=== PATIENT | female | born 1935 | race Caucasian/White ===

== ENCOUNTER 2018-11-05 21:50 | Inpatient (IN) ==
[~2018-11-05 21:50] MED LIST: VANCOMYCIN INJ 1,000 MG in SODIUM CHLORIDE 0.9% 250 ML IV ONE
[2018-11-05] MEDS ORDERED: SODIUM CHLORIDE 0.9% 1,000 ML IV ONE (23:30)
[2018-11-05] MEDS ORDERED: AMIODARONE INJ 450 MG in DEXTROSE 5% 241 ML IV SCH (23:45)
[2018-11-05] MEDS ORDERED: AMIODARONE INJ 150 MG in DEXTROSE 5% 100 ML IV ONE (23:49)
[2018-11-06] MEDS ORDERED: ALBUTEROL/IPRATROPIUM 3 ML NEB RESP TX PRN (00:30)
[2018-11-06 00:46] LABS: Basophils % 0.2 % (0.0-0.8); Eosinophils # 0.1 10*3/uL (0.0-0.87); Eosinophils % 0.5 % (0.00-10.9); Hematocrit 29.1 VOL% (35.7-47.0); Hemoglobin 9.5 GM/DL (12.0-16.0); Immature Granulocytes % 1.1 %; Lymphocytes # 1.1 10*3/uL (1.4-4.0); Lymphocytes % 6.2 % (21.3-54.2); Mean Corpuscular HGB Conc 32.6 GM/DL (32-36); Mean Corpuscular Volume 91.2 FL (87-102); Mean Platelet Volume 12.4 FL (9.6-12.0); Monocytes % 8.1 % (1.7-12.7); Neutrophils % 83.9 % (38.7-73.9); Platelet Count 174 T/CUMM (130-400); Red Blood Count 3.19 MC/CUMM (3.8-5.5); Red Cell Distribution Width 14.9 % (9.3-17.3); White Blood Count 18.1 T/CUMM (4-12)
[2018-11-06 01:00] LABS: Calcium 9.5 MG/DL (8.5-10.1); Osmolality,Calculated 340.8 MOS/KG (273-304)
[2018-11-06] MEDS ORDERED: VANCOMYCIN INJ 1,000 MG in SODIUM CHLORIDE 0.9% 250 ML IV ONE (01:00)
[2018-11-06 01:07] LABS: PT Patient Result 10.7 SECS; Partial Thromboplastin Time 24.5 SECS (0-40)
[2018-11-06] MEDS: SODIUM CHLORIDE 0.9% 1,000 ML IV SCH ×2 (01:08→14:15)
[2018-11-06] MEDS: MEROPENEM 1,000 MG in SODIUM CHLORIDE 0.9% 100 ML IV SCH ×2 (01:17→12:46)
[2018-11-06] MEDS ORDERED: ACETAMINOPHEN 325 MG TABLET PO PRN (01:31)
[2018-11-06] MEDS ORDERED: DOCUSATE SODIUM 100 MG CAPSULE PO PRN (01:31)
[2018-11-06] MEDS ORDERED: ALBUTEROL 2.5 MG/3 ML NEB RESP TX PRN (01:31)
[2018-11-06] MEDS ORDERED: ONDANSETRON 4 MG/2 ML VIAL IV PRN (01:31)
[2018-11-06] MEDS ORDERED: VANCOMYCIN INJ 1,000 MG in SODIUM CHLORIDE 0.9% 250 ML IV PRN (01:49)
[2018-11-06 04:28] LABS: Basophils % 0.2 % (0.0-0.8); Eosinophils % 0.2 % (0.00-10.9); Hematocrit 26.8 VOL% (35.7-47.0); Hemoglobin 8.4 GM/DL (12.0-16.0); Immature Granulocytes % 1.4 %; Immature Granulocytes Absolute 0.24 #; Lymphocytes % 5.9 % (21.3-54.2); Mean Corpuscular HGB Conc 31.3 GM/DL (32-36); Mean Corpuscular Volume 92.4 FL (87-102); Mean Platelet Volume 12.3 FL (9.6-12.0); Monocytes % 9.4 % (1.7-12.7); Neutrophils % 82.9 % (38.7-73.9); Platelet Count 165 T/CUMM (130-400); Red Cell Distribution Width 15.1 % (9.3-17.3); White Blood Count 17.2 T/CUMM (4-12)
[2018-11-06 04:47] LABS: Osmolality,Calculated 338.6 MOS/KG (273-304)
[2018-11-06 05:17] LABS: Amorphous Crystals,Urine Few /HPF (Few); Apearance,Urine CLEAR (Clear); Bacteria,Urine Moderate /HPF (Few); Bilirubin,Urine Negative (Negative); Blood, Urine Negative (Negative); Glucose,Urine (UA) Negative (Negative); Hyaline Casts,Urine 13 /LPF (0-3); Ketones,Urine Negative (Negative); Mucus,Urine Occasional /LPF (Occasional); Nitrite,Urine Negative (Negative); Protein,Urine Negative; RBC,Urine 1 /HPF (0-4); Squamous Epithelial Cell,Urine Occasional /HPF (0-10); Urine Color Yellow (Yellow); Urine Specific Gravity 1.014 (1.001-1.035); Urine Urobilinogen < 2.0 EU/DL (0.2-1.0); WBC,Urine 9 /HPF (0-6)
[2018-11-06] MEDS: BUDESONIDE/FORMOTEROL 80-4.5 INHALER 6.9 GM INH SCH ×2 (09:06→21:12)
[2018-11-06] MEDS: ALLOPURINOL 300 MG TABLET PO SCH (09:06)
[2018-11-06] MEDS: MULTIVITAMIN (CENTRUM) TABLET PO SCH (09:06)
[2018-11-06] MEDS: PANTOPRAZOLE 40 MG VIAL IV SCH (09:06)
[2018-11-06] MEDS: ATORVASTATIN 20 MG TABLET PO SCH (21:12)
[2018-11-06] MEDS: ASPIRIN EC 81 MG TABLET PO SCH (21:12)
[2018-11-07] MEDS: MEROPENEM 1,000 MG in SODIUM CHLORIDE 0.9% 100 ML IV SCH ×2 (00:25→15:29)
[2018-11-07] MEDS: SODIUM CHLORIDE 0.9% 1,000 ML IV SCH (03:35)
[2018-11-07 05:16] LABS: Basophils % 0.1 % (0.0-0.8); Eosinophils # 0.8 10*3/uL (0.0-0.87); Eosinophils % 5.8 % (0.00-10.9); Hematocrit 24.3 VOL% (35.7-47.0); Hemoglobin 7.6 GM/DL (12.0-16.0); Immature Granulocytes % 1.9 %; Immature Granulocytes Absolute 0.26 #; Lymphocytes # 0.9 10*3/uL (1.4-4.0); Lymphocytes % 6.9 % (21.3-54.2); Mean Corpuscular HGB Conc 31.3 GM/DL (32-36); Mean Corpuscular Volume 94.9 FL (87-102); Monocytes % 7.4 % (1.7-12.7); NRBC # 0.02 10*3/uL; Neutrophils % 77.9 % (38.7-73.9); Platelet Count 152 T/CUMM (130-400); Red Blood Count 2.56 MC/CUMM (3.8-5.5); Red Cell Distribution Width 15.7 % (9.3-17.3); White Blood Count 13.5 T/CUMM (4-12)
[2018-11-07 05:57] LABS: Troponin I 0.061 NG/ML (0.00-0.045)
[2018-11-07] MEDS: MULTIVITAMIN (CENTRUM) TABLET PO SCH (09:01)
[2018-11-07] MEDS: AMIODARONE 200 MG TABLET PO SCH ×2 (09:01→21:37)
[2018-11-07] MEDS: ALLOPURINOL 300 MG TABLET PO SCH (09:01)
[2018-11-07] MEDS: BUDESONIDE/FORMOTEROL 80-4.5 INHALER 6.9 GM INH SCH ×2 (09:02→21:37)
[2018-11-07] MEDS: PANTOPRAZOLE 40 MG VIAL IV SCH (09:02)
[2018-11-07] MEDS ORDERED: SODIUM CHLORIDE 0.9% 1,000 ML IV PRN (09:50)
[2018-11-07 10:01] LABS: Troponin I 0.042 NG/ML (0.00-0.045)
[2018-11-07] MEDS ORDERED: FUROSEMIDE 40 MG/4 ML VIAL IV ONE (10:10)
[2018-11-07] MEDS ORDERED: AMIODARONE 150 MG/3 ML VIAL ONE (10:16)
[2018-11-07] MEDS ORDERED: AMIODARONE 450 MG/9 ML VIAL IV ONE (10:16)
[2018-11-07 12:10] LABS: Troponin I 0.044 NG/ML (0.00-0.045)
[2018-11-07] MEDS: VANCOMYCIN INJ 1,250 MG in SODIUM CHLORIDE 0.9% 250 ML IV SCH (14:57)
[2018-11-07] MEDS ORDERED: FUROSEMIDE 40 MG/4 ML VIAL ONE (18:43)
[2018-11-07] MEDS: ASPIRIN EC 81 MG TABLET PO SCH (21:37)
[2018-11-07] MEDS: ATORVASTATIN 20 MG TABLET PO SCH (21:37)
[2018-11-08] MEDS: MEROPENEM 1,000 MG in SODIUM CHLORIDE 0.9% 100 ML IV SCH ×2 (00:12→15:09)
[2018-11-08 04:43] LABS: Calcium 9.5 MG/DL (8.5-10.1); Osmolality,Calculated 307.1 MOS/KG (273-304)
[2018-11-08 04:56] LABS: Basophils % 0.3 % (0.0-0.8); Eosinophils # 0.7 10*3/uL (0.0-0.87); Eosinophils % 4.5 % (0.00-10.9); Immature Granulocytes % 2.5 %; Immature Granulocytes Absolute 0.37 #; Lymphocytes # 1.1 10*3/uL (1.4-4.0); Lymphocytes % 7.1 % (21.3-54.2); Mean Corpuscular HGB Conc 31.9 GM/DL (32-36); Mean Corpuscular Volume 92.8 FL (87-102); Monocytes % 9.1 % (1.7-12.7); NRBC # 0.02 10*3/uL; Neutrophils % 76.5 % (38.7-73.9); Platelet Count 172 T/CUMM (130-400); Red Cell Distribution Width 15.9 % (9.3-17.3); White Blood Count 15.1 T/CUMM (4-12)
[2018-11-08 05:04] LABS: Hemoglobin 10.2 GM/DL (12.0-16.0); Red Blood Count 3.45 MC/CUMM (3.8-5.5)
[2018-11-08] MEDS ORDERED: AMIODARONE INJ 150 MG in DEXTROSE 5% 100 ML IV ONE (07:48)
[2018-11-08] MEDS ORDERED: AMIODARONE 450 MG/9 ML VIAL IV ONE (07:53)
[2018-11-08] MEDS: AMIODARONE INJ 450 MG in DEXTROSE 5% 241 ML IV SCH ×2 (08:43→23:40)
[2018-11-08] MEDS: PANTOPRAZOLE 40 MG VIAL IV SCH (08:49)
[2018-11-08] MEDS: BUDESONIDE/FORMOTEROL 80-4.5 INHALER 6.9 GM INH SCH ×2 (08:49→21:11)
[2018-11-08] MEDS: AMIODARONE 200 MG TABLET PO SCH ×2 (08:49→21:09)
[2018-11-08] MEDS: ALLOPURINOL 300 MG TABLET PO SCH (08:49)
[2018-11-08] MEDS: MULTIVITAMIN (CENTRUM) TABLET PO SCH (08:49)
[2018-11-08] MEDS ORDERED: ETOMIDATE 20 MG/10 ML VIAL IV ONE (09:00)
[2018-11-08] MEDS ORDERED: PROPOFOL 200 MG/20 ML VIAL IV ONE (09:00)
[2018-11-08] MEDS: LISINOPRIL 20 MG TABLET PO SCH (11:49)
[2018-11-08] MEDS: VANCOMYCIN INJ 1,250 MG in SODIUM CHLORIDE 0.9% 250 ML IV SCH (11:49)
[2018-11-08] MEDS: CARVEDILOL 6.25 MG TABLET PO SCH ×2 (11:49→21:11)
[2018-11-08] MEDS: MORPHINE 4 MG/1 ML VIAL IV PRN ×2 (19:21→23:33)
[2018-11-08] MEDS: ASPIRIN EC 81 MG TABLET PO SCH (21:09)
[2018-11-08] MEDS: ATORVASTATIN 20 MG TABLET PO SCH (21:09)
[2018-11-09] MEDS: MEROPENEM 1,000 MG in SODIUM CHLORIDE 0.9% 100 ML IV SCH (00:02)
[2018-11-09] MEDS: MORPHINE 4 MG/1 ML VIAL IV PRN (04:32)
[2018-11-09 04:41] LABS: Basophils % 0.2 % (0.0-0.8); Eosinophils # 1.1 10*3/uL (0.0-0.87); Eosinophils % 6.7 % (0.00-10.9); Hematocrit 33.6 VOL% (35.7-47.0); Hemoglobin 10.4 GM/DL (12.0-16.0); Immature Granulocytes % 2.1 %; Immature Granulocytes Absolute 0.34 #; Lymphocytes # 1.2 10*3/uL (1.4-4.0); Lymphocytes % 7.2 % (21.3-54.2); Mean Corpuscular Volume 94.6 FL (87-102); Mean Platelet Volume 11.6 FL (9.6-12.0); Monocytes % 9.3 % (1.7-12.7); NRBC # 0.02 10*3/uL; Neutrophils % 74.5 % (38.7-73.9); Platelet Count 164 T/CUMM (130-400); Red Blood Count 3.55 MC/CUMM (3.8-5.5); Red Cell Distribution Width 16.8 % (9.3-17.3); White Blood Count 16.2 T/CUMM (4-12)
[2018-11-09 05:25] LABS: Calcium 9.3 MG/DL (8.5-10.1); Osmolality,Calculated 298.4 MOS/KG (273-304)
[2018-11-09] MEDS: LISINOPRIL 20 MG TABLET PO SCH (09:38)
[2018-11-09] MEDS: CARVEDILOL 6.25 MG TABLET PO SCH ×2 (09:38→20:42)
[2018-11-09] MEDS: MULTIVITAMIN (CENTRUM) TABLET PO SCH (09:38)
[2018-11-09] MEDS: BUDESONIDE/FORMOTEROL 80-4.5 INHALER 6.9 GM INH SCH ×2 (09:38→20:42)
[2018-11-09] MEDS: ALLOPURINOL 300 MG TABLET PO SCH (09:39)
[2018-11-09] MEDS: AMIODARONE 200 MG TABLET PO SCH ×2 (09:43→20:40)
[2018-11-09] MEDS: AMIODARONE INJ 450 MG in DEXTROSE 5% 241 ML IV SCH (15:22)
[2018-11-09] MEDS: ATORVASTATIN 20 MG TABLET PO SCH ×2 (20:40→20:42)
[2018-11-09] MEDS: ASPIRIN EC 81 MG TABLET PO SCH (20:42)
[2018-11-09] MEDS: PANTOPRAZOLE 40 MG TABLET PO SCH (20:42)
[2018-11-10 03:02] LABS: Basophils % 0.2 % (0.0-0.8); Eosinophils # 0.6 10*3/uL (0.0-0.87); Eosinophils % 3.9 % (0.00-10.9); Hemoglobin 9.6 GM/DL (12.0-16.0); Immature Granulocytes Absolute 0.32 #; Lymphocytes # 1.1 10*3/uL (1.4-4.0); Lymphocytes % 7.1 % (21.3-54.2); Mean Corpuscular Volume 94.8 FL (87-102); Mean Platelet Volume 11.9 FL (9.6-12.0); Monocytes % 8.6 % (1.7-12.7); Neutrophils % 78.2 % (38.7-73.9); Platelet Count 161 T/CUMM (130-400); Red Blood Count 3.27 MC/CUMM (3.8-5.5); Red Cell Distribution Width 16.4 % (9.3-17.3); White Blood Count 15.7 T/CUMM (4-12)
[2018-11-10 03:23] LABS: Calcium 8.7 MG/DL (8.5-10.1)
[2018-11-10] MEDS: AMIODARONE INJ 450 MG in DEXTROSE 5% 241 ML IV SCH ×2 (06:27→21:22)
[2018-11-10] MEDS: MULTIVITAMIN (CENTRUM) TABLET PO SCH (09:41)
[2018-11-10] MEDS: BUDESONIDE/FORMOTEROL 80-4.5 INHALER 6.9 GM INH SCH ×2 (09:41→21:22)
[2018-11-10] MEDS: CARVEDILOL 6.25 MG TABLET PO SCH ×2 (09:41→21:22)
[2018-11-10] MEDS: AMIODARONE 200 MG TABLET PO SCH ×2 (09:41→21:22)
[2018-11-10] MEDS: LISINOPRIL 20 MG TABLET PO SCH (09:41)
[2018-11-10] MEDS: PANTOPRAZOLE 40 MG TABLET PO SCH ×2 (09:41→21:22)
[2018-11-10] MEDS: ALLOPURINOL 300 MG TABLET PO SCH (09:41)
[2018-11-10] MEDS: ATORVASTATIN 20 MG TABLET PO SCH (21:21)
[2018-11-10] MEDS: ASPIRIN EC 81 MG TABLET PO SCH (21:21)
[2018-11-11 05:17] LABS: Basophils % 0.2 % (0.0-0.8); Eosinophils # 0.4 10*3/uL (0.0-0.87); Eosinophils % 2.5 % (0.00-10.9); Hematocrit 29.9 VOL% (35.7-47.0); Hemoglobin 9.5 GM/DL (12.0-16.0); Immature Granulocytes % 2.2 %; Immature Granulocytes Absolute 0.38 #; Lymphocytes # 1.2 10*3/uL (1.4-4.0); Lymphocytes % 7.1 % (21.3-54.2); Mean Corpuscular HGB Conc 31.8 GM/DL (32-36); Mean Corpuscular Volume 93.4 FL (87-102); Mean Platelet Volume 12.4 FL (9.6-12.0); Monocytes % 7.3 % (1.7-12.7); Neutrophils % 80.7 % (38.7-73.9); Platelet Count 169 T/CUMM (130-400); Red Cell Distribution Width 16.2 % (9.3-17.3); White Blood Count 17.6 T/CUMM (4-12)
[2018-11-11 05:40] LABS: Calcium 9.1 MG/DL (8.5-10.1)
[2018-11-11 08:27] VITALS: BP 138/70
[2018-11-11] MEDS: AMIODARONE 200 MG TABLET PO SCH (08:55)
[2018-11-11] MEDS: MULTIVITAMIN (CENTRUM) TABLET PO SCH (08:55)
[2018-11-11] MEDS: LISINOPRIL 20 MG TABLET PO SCH (08:55)
[2018-11-11] MEDS: ALLOPURINOL 300 MG TABLET PO SCH (08:55)
[2018-11-11] MEDS: CARVEDILOL 6.25 MG TABLET PO SCH (08:56)
[2018-11-11] MEDS: PANTOPRAZOLE 40 MG TABLET PO SCH (08:56)
[2018-11-11] MEDS: BUDESONIDE/FORMOTEROL 80-4.5 INHALER 6.9 GM INH SCH (09:46)
== END 2018-11-11 12:01 | disposition swing bed (61) | DRG 308 ==
LOC: N.2E 22:39 → SUATTDRO 22:58 → SUPCPDRO 22:58 → N.ICU 23:55 → N.TELEN 11-06 18:06
PROVIDERS: ADMIT Internal Medicine; ATTEND Internal Medicine

== ENCOUNTER 2018-11-30 17:25 | Inpatient (IN) ==
[2018-11-30] MEDS ORDERED: DILTIAZEM 50 MG/10 ML VIAL IV STA (17:58)
[2018-11-30] MEDS ORDERED: ONDANSETRON 4 MG/2 ML VIAL IV STA (17:58)
[2018-11-30] MEDS ORDERED: METOPROLOL TARTRATE 5 MG/5 ML VIAL IV STA (18:05)
[2018-11-30] MEDS ORDERED: MEROPENEM 1,000 MG in SODIUM CHLORIDE 0.9% 100 ML IV STA (18:25)
[2018-11-30] MEDS ORDERED: ALBUTEROL/IPRATROPIUM 3 ML NEB RESP TX STA (18:27)
[2018-11-30 19:06] LABS: Basophils # 0.1 10*3/uL (0.0-0.2); Basophils % 0.6 % (0.0-0.8); Eosinophils # 0.4 10*3/uL (0.0-0.87); Eosinophils % 2.7 % (0.00-10.9); Hematocrit 35.9 VOL% (35.7-47.0); Hemoglobin 11.3 GM/DL (12.0-16.0); Immature Granulocytes % 1.7 %; Immature Granulocytes Absolute 0.25 #; Lymphocytes # 0.8 10*3/uL (1.4-4.0); Lymphocytes % 5.7 % (21.3-54.2); Mean Corpuscular HGB Conc 31.5 GM/DL (32-36); Mean Corpuscular Volume 93.2 FL (87-102); Mean Platelet Volume 11.5 FL (9.6-12.0); Monocytes % 7.1 % (1.7-12.7); Neutrophils % 82.2 % (38.7-73.9); Platelet Count 265 T/CUMM (130-400); Red Blood Count 3.85 MC/CUMM (3.8-5.5); Red Cell Distribution Width 16.8 % (9.3-17.3); White Blood Count 14.6 T/CUMM (4-12)
[2018-11-30 19:28] LABS: INR 0.9; PT Patient Result 10.3 SECS; Partial Thromboplastin Time 26.2 SECS (0-40)
[2018-11-30 20:38] LABS: Barbiturates Screen,Urine Negative (Negative); Benzodiazepines Screen,Urine Negative (Negative); Cannabinoid Screen,Urine Negative (Negative); Opiate Screen,Urine Positive (Negative); Phencyclidine Screen,Urine Negative (Negative)
[2018-11-30 20:39] LABS: Apearance,Urine Slightly Hazy (Clear); Bacteria,Urine Occasional /HPF (Few); Bilirubin,Urine Negative (Negative); Blood, Urine Negative (Negative); Glucose,Urine (UA) Negative (Negative); Hyaline Casts,Urine 23 /LPF (0-3); Ketones,Urine Negative (Negative); Mucus,Urine Occasional /LPF (Occasional); Nitrite,Urine Negative (Negative); Protein,Urine Negative; RBC,Urine 3 /HPF (0-4); Renal Epithelial Cells,Urine Occasional /HPF (<1); Squamous Epithelial Cell,Urine Occasional /HPF (0-10); Urine Color Yellow (Yellow); Urine Specific Gravity 1.011 (1.001-1.035); Urine Urobilinogen < 2.0 EU/DL (0.2-1.0); WBC,Urine 10 /HPF (0-6)
[2018-11-30 22:00] LABS: Albumin 3.7 G/DL (3.4-5.0); Blood Urea Nitrogen 7 MG/DL (7-18); Glucose 137 MG/DL (74-106)
[2018-11-30 22:02] LABS: Alanine Aminotransferase 20 U/L (13-56); Aspartate Amino Transferase 39 U/L (0-37)
[2018-11-30 22:05] LABS: Alkaline Phosphatase 20 U/L (45-117); Bilirubin,Total 0.39 MG/DL (0.2-1.0); Total Protein 7.2 G/DL (6.4-8.3)
[2018-11-30 22:46] LABS: Troponin I < 0.015 NG/ML (0.00-0.045)
[2018-11-30] MEDS ORDERED: ONDANSETRON 4 MG/2 ML VIAL IV PRN (23:02)
[2018-11-30] MEDS ORDERED: NICOTINE 21 MG/24 HR PATCH TRANSDERM PRN (23:02)
[2018-11-30] MEDS ORDERED: ACETAMINOPHEN 325 MG TABLET PO PRN (23:02)
[2018-11-30] MEDS ORDERED: MORPHINE 4 MG/1 ML VIAL IV PRN (23:02)
[2018-12-01] MEDS: SODIUM CHLORIDE 0.9% 1,000 ML IV SCH ×2 (00:30→16:17)
[2018-12-01] MEDS ORDERED: AMIODARONE INJ 450 MG in DEXTROSE 5% 241 ML IV SCH ×2 (01:00→07:30)
[2018-12-01] MEDS: MEROPENEM 1,000 MG in SODIUM CHLORIDE 0.9% 100 ML IV SCH ×3 (05:10→20:51)
[2018-12-01 06:09] LABS: Basophils # 0.1 10*3/uL (0.0-0.2); Basophils % 0.6 % (0.0-0.8); Eosinophils # 0.3 10*3/uL (0.0-0.87); Eosinophils % 2.1 % (0.00-10.9); Hematocrit 33.1 VOL% (35.7-47.0); Hemoglobin 10.4 GM/DL (12.0-16.0); Immature Granulocytes % 1.8 %; Lymphocytes # 0.9 10*3/uL (1.4-4.0); Lymphocytes % 5.6 % (21.3-54.2); Mean Corpuscular HGB Conc 31.4 GM/DL (32-36); Mean Platelet Volume 11.8 FL (9.6-12.0); Monocytes % 6.9 % (1.7-12.7); Platelet Count 243 T/CUMM (130-400); Red Blood Count 3.56 MC/CUMM (3.8-5.5); Red Cell Distribution Width 16.7 % (9.3-17.3); White Blood Count 16.3 T/CUMM (4-12)
[2018-12-01] MEDS ORDERED: CARVEDILOL 6.25 MG TABLET PO SCH (09:00)
[2018-12-01] MEDS: CARVEDILOL 12.5 MG TABLET PO SCH ×2 (09:02→20:51)
[2018-12-01] MEDS: AMIODARONE 200 MG TABLET PO SCH ×2 (09:02→20:51)
[2018-12-01] MEDS: LISINOPRIL 20 MG TABLET PO SCH (09:02)
[2018-12-01] MEDS: FUROSEMIDE 40 MG TABLET PO SCH (09:02)
[2018-12-01] MEDS: PANTOPRAZOLE 40 MG TABLET PO SCH (09:02)
[2018-12-01] MEDS: ALLOPURINOL 300 MG TABLET PO SCH (09:03)
[2018-12-01] MEDS: ENOXAPARIN 40 MG/0.4 ML SYRINGE SUBCUT SCH (09:03)
[2018-12-01] MEDS: POTASSIUM CHLORIDE 10 MEQ TABLET PO SCH (09:03)
[2018-12-01] MEDS: ASCORBIC ACID 500 MG TABLET PO SCH ×2 (09:30→20:51)
[2018-12-01] MEDS ORDERED: TUBERCULIN SKIN TEST 0.1 ML SYRINGE INTRADERM ONE (12:00)
[2018-12-01] MEDS: BUDESONIDE/FORMOTEROL 80-4.5 INHALER 6.9 GM INH SCH (20:50)
[2018-12-01] MEDS: ASPIRIN EC 81 MG TABLET PO SCH (20:50)
[2018-12-01] MEDS: ATORVASTATIN 20 MG TABLET PO SCH (20:51)
[2018-12-02] MEDS: MEROPENEM 1,000 MG in SODIUM CHLORIDE 0.9% 100 ML IV SCH ×3 (06:14→20:58)
[2018-12-02] MEDS ORDERED: MIDAZOLAM 2 MG/2 ML VIAL ONE (06:56)
[2018-12-02] MEDS ORDERED: MEPERIDINE 50 MG/1 ML VIAL IM ONE (07:00)
[2018-12-02] MEDS ORDERED: PROMETHAZINE 25 MG/1 ML VIAL IM ONE (07:00)
[2018-12-02] MEDS ORDERED: LIDOCAINE 2% 20 ML VIAL RESP TX ONE (07:30)
[2018-12-02] MEDS ORDERED: LIDOCAINE 2% VISCOUS 100 ML BOTTLE SWISH/SPIT ONE (07:30)
[2018-12-02] MEDS ORDERED: MIDAZOLAM 2 MG/2 ML VIAL IV ONE (07:30)
[2018-12-02] MEDS ORDERED: LIDOCAINE 1% 20 ML VIAL MISC INJ ONE (07:30)
[2018-12-02] MEDS: MULTIVITAMIN (CENTRUM) TABLET PO SCH (12:47)
[2018-12-02] MEDS: ASCORBIC ACID 500 MG TABLET PO SCH ×2 (12:59→20:59)
[2018-12-02] MEDS: CARVEDILOL 12.5 MG TABLET PO SCH ×2 (12:59→20:58)
[2018-12-02] MEDS: LISINOPRIL 20 MG TABLET PO SCH (12:59)
[2018-12-02] MEDS: PANTOPRAZOLE 40 MG TABLET PO SCH (13:00)
[2018-12-02] MEDS: FUROSEMIDE 40 MG TABLET PO SCH (13:00)
[2018-12-02] MEDS: AMIODARONE 200 MG TABLET PO SCH ×2 (13:00→20:58)
[2018-12-02] MEDS: POTASSIUM CHLORIDE 10 MEQ TABLET PO SCH (13:00)
[2018-12-02] MEDS: ALLOPURINOL 300 MG TABLET PO SCH (13:00)
[2018-12-02] MEDS: ENOXAPARIN 40 MG/0.4 ML SYRINGE SUBCUT SCH (13:01)
[2018-12-02] MEDS: BUDESONIDE/FORMOTEROL 80-4.5 INHALER 6.9 GM INH SCH ×2 (13:05→20:59)
[2018-12-02] MEDS: SODIUM CHLORIDE 0.9% 1,000 ML IV SCH ×2 (15:08→18:03)
[2018-12-02] MEDS: ASPIRIN EC 81 MG TABLET PO SCH (20:58)
[2018-12-02] MEDS: ATORVASTATIN 20 MG TABLET PO SCH (20:58)
[2018-12-02] MEDS: ALBUTEROL/IPRATROPIUM 3 ML NEB RESP TX PRN (21:10)
[2018-12-03] MEDS: MEROPENEM 1,000 MG in SODIUM CHLORIDE 0.9% 100 ML IV SCH ×3 (05:06→20:49)
[2018-12-03] MEDS: SODIUM CHLORIDE 0.9% 1,000 ML IV SCH ×2 (05:30→21:20)
[2018-12-03] MEDS: ALBUTEROL/IPRATROPIUM 3 ML NEB RESP TX PRN ×3 (07:57→19:30)
[2018-12-03] MEDS: ENOXAPARIN 40 MG/0.4 ML SYRINGE SUBCUT SCH (09:25)
[2018-12-03] MEDS: ASCORBIC ACID 500 MG TABLET PO SCH ×2 (09:26→20:49)
[2018-12-03] MEDS: LISINOPRIL 20 MG TABLET PO SCH (09:26)
[2018-12-03] MEDS: POTASSIUM CHLORIDE 10 MEQ TABLET PO SCH (09:26)
[2018-12-03] MEDS: ALLOPURINOL 300 MG TABLET PO SCH (09:26)
[2018-12-03] MEDS: PANTOPRAZOLE 40 MG TABLET PO SCH (09:26)
[2018-12-03] MEDS: AMIODARONE 200 MG TABLET PO SCH ×2 (09:26→20:48)
[2018-12-03] MEDS: FUROSEMIDE 40 MG TABLET PO SCH (09:27)
[2018-12-03] MEDS: CARVEDILOL 12.5 MG TABLET PO SCH ×2 (09:27→20:49)
[2018-12-03] MEDS: MULTIVITAMIN (CENTRUM) TABLET PO SCH (09:27)
[2018-12-03] MEDS: VANCOMYCIN INJ 1,000 MG in SODIUM CHLORIDE 0.9% 250 ML IV SCH (12:04)
[2018-12-03] MEDS: BUDESONIDE/FORMOTEROL 80-4.5 INHALER 6.9 GM INH SCH ×2 (12:05→20:50)
[2018-12-03] MEDS: ASPIRIN EC 81 MG TABLET PO SCH (20:48)
[2018-12-03] MEDS: ATORVASTATIN 20 MG TABLET PO SCH (20:49)
[2018-12-03] MEDS: NYSTATIN CREAM 15 GM TUBE TOP SCH (20:50)
[2018-12-04] MEDS: VANCOMYCIN INJ 1,000 MG in SODIUM CHLORIDE 0.9% 250 ML IV SCH ×3 (00:07→23:26)
[2018-12-04] MEDS: ALBUTEROL/IPRATROPIUM 3 ML NEB RESP TX PRN ×2 (04:00→19:07)
[2018-12-04] MEDS: MEROPENEM 1,000 MG in SODIUM CHLORIDE 0.9% 100 ML IV SCH ×3 (04:44→20:41)
[2018-12-04] MEDS: SODIUM CHLORIDE 0.9% 1,000 ML IV SCH (07:28)
[2018-12-04] MEDS: ASCORBIC ACID 500 MG TABLET PO SCH ×2 (08:30→20:40)
[2018-12-04] MEDS: LISINOPRIL 20 MG TABLET PO SCH (08:30)
[2018-12-04] MEDS: ENOXAPARIN 40 MG/0.4 ML SYRINGE SUBCUT SCH (08:30)
[2018-12-04] MEDS: FUROSEMIDE 40 MG TABLET PO SCH (08:30)
[2018-12-04] MEDS: AMIODARONE 200 MG TABLET PO SCH ×2 (08:30→20:41)
[2018-12-04] MEDS: MULTIVITAMIN (CENTRUM) TABLET PO SCH (08:31)
[2018-12-04] MEDS: ALLOPURINOL 300 MG TABLET PO SCH (08:31)
[2018-12-04] MEDS: CARVEDILOL 12.5 MG TABLET PO SCH (08:31)
[2018-12-04] MEDS: PANTOPRAZOLE 40 MG TABLET PO SCH (08:31)
[2018-12-04] MEDS: POTASSIUM CHLORIDE 10 MEQ TABLET PO SCH (08:31)
[2018-12-04] MEDS: BUDESONIDE/FORMOTEROL 80-4.5 INHALER 6.9 GM INH SCH ×2 (10:59→20:41)
[2018-12-04] MEDS: NYSTATIN CREAM 15 GM TUBE TOP SCH ×2 (10:59→20:42)
[2018-12-04] MEDS: CARVEDILOL 25 MG TABLET PO SCH ×2 (17:32→20:41)
[2018-12-04] MEDS: ATORVASTATIN 20 MG TABLET PO SCH (20:41)
[2018-12-04] MEDS: ASPIRIN EC 81 MG TABLET PO SCH (20:41)
[2018-12-05] MEDS: ALBUTEROL/IPRATROPIUM 3 ML NEB RESP TX PRN ×5 (00:48→23:59)
[2018-12-05] MEDS: MEROPENEM 1,000 MG in SODIUM CHLORIDE 0.9% 100 ML IV SCH ×3 (05:09→21:27)
[2018-12-05] MEDS: ALLOPURINOL 300 MG TABLET PO SCH (08:55)
[2018-12-05] MEDS: CARVEDILOL 25 MG TABLET PO SCH ×2 (08:55→21:26)
[2018-12-05] MEDS: LISINOPRIL 20 MG TABLET PO SCH (08:55)
[2018-12-05] MEDS: POTASSIUM CHLORIDE 10 MEQ TABLET PO SCH (08:55)
[2018-12-05] MEDS: MULTIVITAMIN (CENTRUM) TABLET PO SCH (08:56)
[2018-12-05] MEDS: AMIODARONE 200 MG TABLET PO SCH ×2 (08:56→21:26)
[2018-12-05] MEDS: ENOXAPARIN 40 MG/0.4 ML SYRINGE SUBCUT SCH (08:56)
[2018-12-05] MEDS: PANTOPRAZOLE 40 MG TABLET PO SCH (08:56)
[2018-12-05] MEDS: FUROSEMIDE 40 MG TABLET PO SCH (08:56)
[2018-12-05] MEDS: ASCORBIC ACID 500 MG TABLET PO SCH ×2 (08:56→21:26)
[2018-12-05] MEDS: BUDESONIDE/FORMOTEROL 80-4.5 INHALER 6.9 GM INH SCH ×2 (08:57→21:28)
[2018-12-05] MEDS: NYSTATIN CREAM 15 GM TUBE TOP SCH ×2 (08:57→21:28)
[2018-12-05 09:32] LABS: Basophils # 0.1 10*3/uL (0.0-0.2); Basophils % 0.4 % (0.0-0.8); Eosinophils # 0.4 10*3/uL (0.0-0.87); Eosinophils % 2.5 % (0.00-10.9); Hematocrit 32.7 VOL% (35.7-47.0); Hemoglobin 10.3 GM/DL (12.0-16.0); Immature Granulocytes % 1.6 %; Immature Granulocytes Absolute 0.23 #; Lymphocytes % 6.7 % (21.3-54.2); Mean Corpuscular HGB Conc 31.5 GM/DL (32-36); Mean Corpuscular Volume 92.4 FL (87-102); Mean Platelet Volume 11.5 FL (9.6-12.0); Monocytes % 7.3 % (1.7-12.7); Neutrophils % 81.5 % (38.7-73.9); Platelet Count 185 T/CUMM (130-400); Red Blood Count 3.54 MC/CUMM (3.8-5.5); Red Cell Distribution Width 16.5 % (9.3-17.3); White Blood Count 14.5 T/CUMM (4-12)
[2018-12-05 09:53] LABS: Alanine Aminotransferase 25 U/L (13-56); Albumin 2.3 G/DL (3.4-5.0); Alkaline Phosphatase 169 U/L (45-117); Aspartate Amino Transferase 19 U/L (0-37); Bilirubin,Total < 0.39 MG/DL (0.2-1.0); Blood Urea Nitrogen 16 MG/DL (7-18); Calcium 9.4 MG/DL (8.5-10.1); Glucose 195 MG/DL (74-106); Total Protein 6.1 G/DL (6.4-8.3)
[2018-12-05] MEDS: POTASSIUM CHLORIDE 20 MEQ TABLET PO SCH ×3 (11:36→23:01)
[2018-12-05] MEDS: VANCOMYCIN INJ 1,000 MG in SODIUM CHLORIDE 0.9% 250 ML IV SCH (11:44)
[2018-12-05] MEDS: ASPIRIN EC 81 MG TABLET PO SCH (21:25)
[2018-12-05] MEDS: ATORVASTATIN 20 MG TABLET PO SCH (21:26)
[2018-12-06] MEDS: VANCOMYCIN INJ 1,000 MG in SODIUM CHLORIDE 0.9% 250 ML IV SCH (00:08)
[2018-12-06] MEDS ORDERED: hydrALAZINE 20 MG/1 ML VIAL IV PRN (03:08)
[2018-12-06] MEDS: MEROPENEM 1,000 MG in SODIUM CHLORIDE 0.9% 100 ML IV SCH (04:31)
[2018-12-06 04:53] LABS: Calcium 9.5 MG/DL (8.5-10.1); Osmolality,Calculated 287.8 MOS/KG (273-304)
[2018-12-06] MEDS: ALBUTEROL/IPRATROPIUM 3 ML NEB RESP TX PRN ×3 (06:53→19:40)
[2018-12-06] MEDS: AMIODARONE 200 MG TABLET PO SCH ×2 (09:34→20:20)
[2018-12-06] MEDS: ASCORBIC ACID 500 MG TABLET PO SCH ×2 (09:34→20:20)
[2018-12-06] MEDS: CARVEDILOL 25 MG TABLET PO SCH ×2 (09:34→20:20)
[2018-12-06] MEDS: POTASSIUM CHLORIDE 10 MEQ TABLET PO SCH (09:35)
[2018-12-06] MEDS: PANTOPRAZOLE 40 MG TABLET PO SCH (09:35)
[2018-12-06] MEDS: MULTIVITAMIN (CENTRUM) TABLET PO SCH (09:35)
[2018-12-06] MEDS: LISINOPRIL 20 MG TABLET PO SCH (09:35)
[2018-12-06] MEDS: FUROSEMIDE 40 MG TABLET PO SCH (09:35)
[2018-12-06] MEDS: ALLOPURINOL 300 MG TABLET PO SCH (09:35)
[2018-12-06] MEDS: NYSTATIN CREAM 15 GM TUBE TOP SCH ×2 (09:37→20:20)
[2018-12-06] MEDS: BUDESONIDE/FORMOTEROL 80-4.5 INHALER 6.9 GM INH SCH ×2 (09:37→20:20)
[2018-12-06] MEDS: FLUCONAZOLE 100 MG TABLET PO SCH (15:10)
[2018-12-06] MEDS: ASPIRIN EC 81 MG TABLET PO SCH (20:19)
[2018-12-06] MEDS: ATORVASTATIN 20 MG TABLET PO SCH (20:20)
[2018-12-07 02:44] LABS: Basophils # 0.1 10*3/uL (0.0-0.2); Basophils % 0.6 % (0.0-0.8); Eosinophils # 0.7 10*3/uL (0.0-0.87); Eosinophils % 5.2 % (0.00-10.9); Hematocrit 32.5 VOL% (35.7-47.0); Hemoglobin 9.9 GM/DL (12.0-16.0); Immature Granulocytes % 1.6 %; Immature Granulocytes Absolute 0.21 #; Lymphocytes # 1.2 10*3/uL (1.4-4.0); Lymphocytes % 9.1 % (21.3-54.2); Mean Corpuscular HGB Conc 30.5 GM/DL (32-36); Mean Corpuscular Volume 93.4 FL (87-102); Mean Platelet Volume 11.9 FL (9.6-12.0); Monocytes % 8.9 % (1.7-12.7); Neutrophils % 74.6 % (38.7-73.9); Platelet Count 191 T/CUMM (130-400); Red Blood Count 3.48 MC/CUMM (3.8-5.5); Red Cell Distribution Width 16.8 % (9.3-17.3); White Blood Count 12.8 T/CUMM (4-12)
[2018-12-07 03:09] LABS: Calcium 9.5 MG/DL (8.5-10.1); Osmolality,Calculated 289.8 MOS/KG (273-304)
[2018-12-07] MEDS: ALBUTEROL/IPRATROPIUM 3 ML NEB RESP TX PRN ×3 (07:10→19:30)
[2018-12-07] MEDS: ALLOPURINOL 300 MG TABLET PO SCH (08:41)
[2018-12-07] MEDS: FLUCONAZOLE 100 MG TABLET PO SCH (08:41)
[2018-12-07] MEDS: POTASSIUM CHLORIDE 10 MEQ TABLET PO SCH (08:41)
[2018-12-07] MEDS: MULTIVITAMIN (CENTRUM) TABLET PO SCH (08:41)
[2018-12-07] MEDS: LISINOPRIL 20 MG TABLET PO SCH (08:41)
[2018-12-07] MEDS: ASCORBIC ACID 500 MG TABLET PO SCH ×2 (08:41→20:33)
[2018-12-07] MEDS: FUROSEMIDE 40 MG TABLET PO SCH (08:42)
[2018-12-07] MEDS: CARVEDILOL 25 MG TABLET PO SCH ×2 (08:42→20:33)
[2018-12-07] MEDS: PANTOPRAZOLE 40 MG TABLET PO SCH (08:42)
[2018-12-07] MEDS: AMIODARONE 200 MG TABLET PO SCH ×2 (08:42→20:33)
[2018-12-07] MEDS: ENOXAPARIN 40 MG/0.4 ML SYRINGE SUBCUT SCH (08:47)
[2018-12-07] MEDS: NYSTATIN CREAM 15 GM TUBE TOP SCH ×2 (08:47→20:34)
[2018-12-07] MEDS: BUDESONIDE/FORMOTEROL 80-4.5 INHALER 6.9 GM INH SCH ×2 (08:47→20:33)
[2018-12-07] MEDS: LEVOFLOXACIN 500 MG TABLET PO SCH (14:17)
[2018-12-07] MEDS: ATORVASTATIN 20 MG TABLET PO SCH (20:33)
[2018-12-07] MEDS: ASPIRIN EC 81 MG TABLET PO SCH (20:33)
[2018-12-08 04:02] LABS: Basophils # 0.1 10*3/uL (0.0-0.2); Basophils % 0.5 % (0.0-0.8); Eosinophils # 0.6 10*3/uL (0.0-0.87); Eosinophils % 4.8 % (0.00-10.9); Hematocrit 31.3 VOL% (35.7-47.0); Immature Granulocytes Absolute 0.25 #; Lymphocytes # 1.4 10*3/uL (1.4-4.0); Lymphocytes % 11.1 % (21.3-54.2); Mean Corpuscular HGB Conc 31.9 GM/DL (32-36); Mean Corpuscular Volume 91.5 FL (87-102); Mean Platelet Volume 12.3 FL (9.6-12.0); Monocytes % 8.4 % (1.7-12.7); Neutrophils % 73.2 % (38.7-73.9); Platelet Count 195 T/CUMM (130-400); Red Blood Count 3.42 MC/CUMM (3.8-5.5); Red Cell Distribution Width 16.5 % (9.3-17.3); White Blood Count 12.2 T/CUMM (4-12)
[2018-12-08 04:28] LABS: Calcium 9.7 MG/DL (8.5-10.1); Osmolality,Calculated 285.3 MOS/KG (273-304)
[2018-12-08] MEDS: ALBUTEROL/IPRATROPIUM 3 ML NEB RESP TX PRN (07:21)
[2018-12-08] MEDS: ALLOPURINOL 300 MG TABLET PO SCH (08:49)
[2018-12-08] MEDS: LISINOPRIL 20 MG TABLET PO SCH (08:50)
[2018-12-08] MEDS: MULTIVITAMIN (CENTRUM) TABLET PO SCH (08:50)
[2018-12-08] MEDS: ASCORBIC ACID 500 MG TABLET PO SCH (08:51)
[2018-12-08] MEDS: FUROSEMIDE 40 MG TABLET PO SCH (08:51)
[2018-12-08] MEDS: AMIODARONE 200 MG TABLET PO SCH (08:51)
[2018-12-08] MEDS: FLUCONAZOLE 100 MG TABLET PO SCH (08:51)
[2018-12-08] MEDS: PANTOPRAZOLE 40 MG TABLET PO SCH (08:51)
[2018-12-08] MEDS: POTASSIUM CHLORIDE 10 MEQ TABLET PO SCH (08:51)
[2018-12-08] MEDS: CARVEDILOL 25 MG TABLET PO SCH (08:52)
[2018-12-08] MEDS: NYSTATIN CREAM 15 GM TUBE TOP SCH (08:55)
[2018-12-08] MEDS: ENOXAPARIN 40 MG/0.4 ML SYRINGE SUBCUT SCH (08:55)
[2018-12-08] MEDS: BUDESONIDE/FORMOTEROL 80-4.5 INHALER 6.9 GM INH SCH (08:55)
[2018-12-08 12:18] VITALS: BP 118/57
[2018-12-08] MEDS: LEVOFLOXACIN 500 MG TABLET PO SCH (12:54)
[2018-12-08] MEDS ORDERED: predniSONE 20 MG TABLET PO SCH (13:30)
== END 2018-12-08 14:57 | disposition swing bed (61) | DRG 166 ==
LOC: EDBD → EDUNIT# → N.ED 17:25 → SUATTDRO 22:37 → N.EDINP 22:37 → N.TELEN 12-01 00:42 → N.TELES 12-02 15:58
PROVIDERS: ADMIT Internal Medicine; ATTEND Internal Medicine
PROC: BRONCHB (2018-12-02 07:35)
PROC: IRTHORA (2018-12-06 11:05)

== ENCOUNTER 2019-01-21 05:00 | Inpatient (IN) ==
[2019-01-21] MEDS ORDERED: CEFEPIME 2,000 MG in SODIUM CHLORIDE 0.9% 100 ML IV STA ×2 (05:17→05:18)
[2019-01-21] MEDS ORDERED: VANCOMYCIN INJ 1,000 MG in SODIUM CHLORIDE 0.9% 250 ML IV STA (05:17)
[2019-01-21 05:33] LABS: ABG Base Excess -0.3 MMOL/L (-2.5-2.5); ABG HCO3 24.2 MMOL/L (20-26); ABG Oxygen Saturation 99.9 % (95-100); ABG PCO2 51.4 MM HG (35-48); ABG PH 7.319 (7.35-7.45); ABG TCO2 24.2 MMOL/L (23-27)
[2019-01-21 05:34] LABS: Allen Test Positive; Pt O2 Delivery Device Ventilator
[2019-01-21] MEDS ORDERED: NOREPINEPHRINE 4 MG/4 ML VIAL IV ONE (05:50)
[2019-01-21] MEDS: NOREPINEPHRINE 8 MG in SODIUM CHLORIDE 0.9% 242 ML IV PRN ×3 (05:52→22:14)
[2019-01-21 06:20] LABS: Basophils % 0.4 % (0.0-0.8); Eosinophils # 0.1 10*3/uL (0.0-0.87); Eosinophils % 0.9 % (0.00-10.9); Hematocrit 35.2 VOL% (35.7-47.0); Hemoglobin 10.7 GM/DL (12.0-16.0); Immature Granulocytes % 2.9 %; Immature Granulocytes Absolute 0.22 #; Lymphocytes # 0.4 10*3/uL (1.4-4.0); Lymphocytes % 4.7 % (21.3-54.2); Mean Corpuscular HGB Conc 30.4 GM/DL (32-36); Mean Corpuscular Volume 96.7 FL (87-102); Mean Platelet Volume 12.8 FL (9.6-12.0); Monocytes % 8.5 % (1.7-12.7); NRBC # 0.02 10*3/uL; Neutrophils % 82.6 % (38.7-73.9); Platelet Count 146 T/CUMM (130-400); Red Blood Count 3.64 MC/CUMM (3.8-5.5); Red Cell Distribution Width 18.5 % (9.3-17.3); White Blood Count 7.6 T/CUMM (4-12)
[2019-01-21 06:24] LABS: Apearance,Urine Slightly Hazy (Clear); Bacteria,Urine Many /HPF (Few); Bilirubin,Urine Negative (Negative); Blood, Urine Negative (Negative); Glucose,Urine (UA) Negative (Negative); Hyaline Casts,Urine 66 /LPF (0-3); Ketones,Urine 5 mg/dL (Negative); Mucus,Urine Occasional /LPF (Occasional); Nitrite,Urine Negative (Negative); Protein,Urine Negative; RBC,Urine 1 /HPF (0-4); Urine Color Amber (Yellow); Urine Specific Gravity 1.019 (1.001-1.035); Urine Urobilinogen < 2.0 EU/DL (0.2-1.0); WBC,Urine 1 /HPF (0-6)
[2019-01-21 06:47] LABS: Alanine Aminotransferase 33 U/L (13-56); Albumin 2.4 G/DL (3.4-5.0); Alkaline Phosphatase 129 U/L (45-117); Aspartate Amino Transferase 18 U/L (0-37); Bilirubin,Total < 0.39 MG/DL (0.2-1.0); Blood Urea Nitrogen 50 MG/DL (7-18); Calcium 10.6 MG/DL (8.5-10.1); Glucose 172 MG/DL (74-106); Osmolality,Calculated 302.8 MOS/KG (273-304); Total Protein 5.3 G/DL (6.4-8.3)
[2019-01-21 07:27] LABS: Band Neutrophils 34 % (0-10); Lymphocytes 5 % (20-55); Platelet Estimate Adequate; Segmented Neutrophils 52 % (50-85); Total Cells Counted 100
[2019-01-21 07:28] LABS: Anisocytosis 1+; Macrocytosis Slight; Poikilocytosis 1+
[2019-01-21] MEDS ORDERED: SODIUM CHLORIDE 0.9% 1,800 ML IV ONE (07:51)
[2019-01-21] MEDS ORDERED: ONDANSETRON 4 MG/2 ML VIAL IV PRN (07:55)
[2019-01-21] MEDS ORDERED: MORPHINE 4 MG/1 ML VIAL IV PRN (07:55)
[2019-01-21] MEDS ORDERED: ACETAMINOPHEN 325 MG TABLET PO PRN (07:55)
[2019-01-21] MEDS ORDERED: HYDROCORTISONE 100 MG VIAL IV ONE (08:42)
[2019-01-21] MEDS: MIDAZOLAM 100 MG in SODIUM CHLORIDE 0.9% 80 ML IV PRN (10:11)
[2019-01-21] MEDS: DEXTROSE 5% NACL 0.45% 1,000 ML IV SCH ×3 (10:50→18:47)
[2019-01-21] MEDS: ENOXAPARIN 30 MG/0.3 ML SYRINGE SUBCUT SCH (10:52)
[2019-01-21] MEDS: ASCORBIC ACID 500 MG TABLET PO SCH ×2 (10:52→20:13)
[2019-01-21] MEDS: AMIODARONE 200 MG TABLET PO SCH ×2 (10:53→20:13)
[2019-01-21] MEDS ORDERED: SODIUM CHLORIDE 0.9% 500 ML IV ONE (12:25)
[2019-01-21] MEDS: ALBUTEROL/IPRATROPIUM 3 ML NEB RESP TX SCH ×2 (12:52→19:16)
[2019-01-21] MEDS: HYDROCORTISONE 100 MG VIAL IV SCH (16:48)
[2019-01-21] MEDS: MEROPENEM 1,000 MG in SODIUM CHLORIDE 0.9% 100 ML IV SCH (18:15)
[2019-01-21] MEDS: ASPIRIN EC 81 MG TABLET PO SCH (20:13)
[2019-01-22] MEDS: ALBUTEROL/IPRATROPIUM 3 ML NEB RESP TX SCH ×4 (00:23→19:26)
[2019-01-22] MEDS: HYDROCORTISONE 100 MG VIAL IV SCH ×3 (01:48→17:28)
[2019-01-22] MEDS: DEXTROSE 5% NACL 0.45% 1,000 ML IV SCH ×5 (03:33→23:40)
[2019-01-22 03:47] LABS: ABG HCO3 20.3 MMOL/L (20-26); ABG Oxygen Saturation 98.2 % (95-100); ABG PCO2 40.5 MM HG (35-48); ABG PH 7.318 (7.35-7.45); ABG TCO2 18.9 MMOL/L (23-27); Pt O2 Delivery Device Ventilator
[2019-01-22 05:31] LABS: Basophils # 0.1 10*3/uL (0.0-0.2); Basophils % 0.3 % (0.0-0.8); Eosinophils % 0.1 % (0.00-10.9); Hematocrit 31.8 VOL% (35.7-47.0); Hemoglobin 9.7 GM/DL (12.0-16.0); Immature Granulocytes % 2.4 %; Immature Granulocytes Absolute 0.44 #; Lymphocytes # 0.6 10*3/uL (1.4-4.0); Lymphocytes % 3.3 % (21.3-54.2); Mean Corpuscular HGB Conc 30.5 GM/DL (32-36); Mean Corpuscular Volume 96.7 FL (87-102); Mean Platelet Volume 12.8 FL (9.6-12.0); Monocytes % 4.1 % (1.7-12.7); NRBC # 0.07 10*3/uL; Neutrophils % 89.8 % (38.7-73.9); Platelet Count 162 T/CUMM (130-400); Red Blood Count 3.29 MC/CUMM (3.8-5.5); Red Cell Distribution Width 18.6 % (9.3-17.3)
[2019-01-22 05:50] LABS: Albumin 1.8 G/DL (3.4-5.0); Bilirubin,Total 0.4 MG/DL (0.2-1.0); Calcium 9.4 MG/DL (8.5-10.1); Total Protein 4.8 G/DL (6.4-8.3)
[2019-01-22 06:02] LABS: Band Neutrophils 27 % (0-10); Lymphocytes 3 % (20-55); Nucleated Red Blood Cells 1 (0-5); Segmented Neutrophils 68 % (50-85); Total Cells Counted 100
[2019-01-22 06:08] LABS: Platelet Estimate Normal
[2019-01-22] MEDS: MEROPENEM 1,000 MG in SODIUM CHLORIDE 0.9% 100 ML IV SCH ×2 (07:20→18:28)
[2019-01-22] MEDS: NOREPINEPHRINE 8 MG in SODIUM CHLORIDE 0.9% 242 ML IV PRN (08:15)
[2019-01-22] MEDS: ASCORBIC ACID 500 MG TABLET PO SCH ×2 (10:31→20:17)
[2019-01-22] MEDS: AMIODARONE 200 MG TABLET PO SCH ×2 (10:31→20:17)
[2019-01-22] MEDS: ENOXAPARIN 30 MG/0.3 ML SYRINGE SUBCUT SCH (10:31)
[2019-01-22] MEDS ORDERED: SODIUM CHLORIDE 0.9% 1,000 ML IV ONE (11:40)
[2019-01-22] MEDS ORDERED: GLUCAGON 1 MG VIAL IM PRN (11:50)
[2019-01-22] MEDS ORDERED: DEXTROSE 10% 250 ML BAG IV PRN (11:50)
[2019-01-22] MEDS: INSULIN LISPRO 100 UNIT/ML SUBCUT SCH ×3 (12:12→23:40)
[2019-01-22] MEDS: ASPIRIN EC 81 MG TABLET PO SCH (20:17)
[2019-01-22] MEDS: MIDAZOLAM 100 MG in SODIUM CHLORIDE 0.9% 80 ML IV PRN (22:37)
[2019-01-23] MEDS: ALBUTEROL/IPRATROPIUM 3 ML NEB RESP TX SCH ×4 (00:03→19:42)
[2019-01-23] MEDS: HYDROCORTISONE 100 MG VIAL IV SCH ×3 (00:59→17:21)
[2019-01-23] MEDS: NOREPINEPHRINE 8 MG in SODIUM CHLORIDE 0.9% 242 ML IV PRN ×2 (01:47→17:54)
[2019-01-23 05:19] LABS: ABG Base Excess -5.7 MMOL/L (-2.5-2.5); ABG HCO3 19.8 MMOL/L (20-26); ABG Oxygen Saturation 98.5 % (95-100); ABG PCO2 37.6 MM HG (35-48); ABG PH 7.329 (7.35-7.45); ABG TCO2 17.6 MMOL/L (23-27); Allen Test Positive; Pt O2 Delivery Device Ventilator
[2019-01-23 05:36] LABS: Basophils # 0.1 10*3/uL (0.0-0.2); Basophils % 0.3 % (0.0-0.8); Eosinophils # 0.3 10*3/uL (0.0-0.87); Eosinophils % 1.4 % (0.00-10.9); Hematocrit 32.1 VOL% (35.7-47.0); Hemoglobin 9.9 GM/DL (12.0-16.0); Lymphocytes # 0.6 10*3/uL (1.4-4.0); Lymphocytes % 2.7 % (21.3-54.2); Mean Corpuscular HGB Conc 30.8 GM/DL (32-36); Mean Corpuscular Volume 94.1 FL (87-102); Mean Platelet Volume 13.2 FL (9.6-12.0); Monocytes % 4.8 % (1.7-12.7); NRBC # 0.04 10*3/uL; Neutrophils % 86.8 % (38.7-73.9); Platelet Count 162 T/CUMM (130-400); Red Blood Count 3.41 MC/CUMM (3.8-5.5); White Blood Count 20.1 T/CUMM (4-12)
[2019-01-23] MEDS: INSULIN LISPRO 100 UNIT/ML SUBCUT SCH ×3 (06:07→18:10)
[2019-01-23] MEDS: MEROPENEM 1,000 MG in SODIUM CHLORIDE 0.9% 100 ML IV SCH (06:07)
[2019-01-23] MEDS: DEXTROSE 5% NACL 0.45% 1,000 ML IV SCH ×3 (06:08→15:33)
[2019-01-23 06:17] LABS: Alanine Aminotransferase 47 U/L (13-56); Albumin 1.7 G/DL (3.4-5.0); Alkaline Phosphatase 133 U/L (45-117); Aspartate Amino Transferase 22 U/L (0-37); Bilirubin,Total < 0.39 MG/DL (0.2-1.0); Blood Urea Nitrogen 45 MG/DL (7-18); Calcium 9.5 MG/DL (8.5-10.1); Glucose 153 MG/DL (74-106); Osmolality,Calculated 295.3 MOS/KG (273-304); Total Protein 4.8 G/DL (6.4-8.3)
[2019-01-23 06:48] VITALS: BP 123/75
[2019-01-23 06:56] LABS: Anisocytosis 1+; Band Neutrophils 26 % (0-10); Eosinophils 3 % (0-10); Lymphocytes 3 % (20-55); Ovalocytes 1+; Platelet Estimate Normal; Segmented Neutrophils 64 % (50-85); Total Cells Counted 100
[2019-01-23] MEDS: ENOXAPARIN 30 MG/0.3 ML SYRINGE SUBCUT SCH (09:38)
[2019-01-23] MEDS: AMIODARONE 200 MG TABLET PO SCH ×2 (09:38→21:02)
[2019-01-23] MEDS: ASCORBIC ACID 500 MG TABLET PO SCH ×2 (09:38→21:02)
[2019-01-23] MEDS: CIPROFLOXACIN INJ 400 MG in PREMIX 1 EACH IV SCH (15:34)
[2019-01-23] MEDS: ASPIRIN EC 81 MG TABLET PO SCH (21:02)
[2019-01-24] MEDS: HYDROCORTISONE 100 MG VIAL IV SCH ×2 (00:54→09:53)
[2019-01-24] MEDS: INSULIN LISPRO 100 UNIT/ML SUBCUT SCH ×3 (00:54→14:03)
[2019-01-24] MEDS ORDERED: SODIUM CHLORIDE 0.9% 500 ML IV ONE (01:00)
[2019-01-24 03:30] LABS: ABG Base Excess -7.6 MMOL/L (-2.5-2.5); ABG HCO3 18.3 MMOL/L (20-26); ABG Oxygen Saturation 98.5 % (95-100); ABG PCO2 32.5 MM HG (35-48); ABG PH 7.336 (7.35-7.45); ABG TCO2 15.8 MMOL/L (23-27); Allen Test Positive; Pt O2 Delivery Device Ventilator
[2019-01-24] MEDS: ALBUTEROL/IPRATROPIUM 3 ML NEB RESP TX SCH ×3 (03:30→13:33)
[2019-01-24 04:47] LABS: Basophils # 0.1 10*3/uL (0.0-0.2); Basophils % 0.2 % (0.0-0.8); Hematocrit 31.8 VOL% (35.7-47.0); Hemoglobin 9.9 GM/DL (12.0-16.0); Immature Granulocytes % 3.8 %; Immature Granulocytes Absolute 0.76 #; Lymphocytes # 0.4 10*3/uL (1.4-4.0); Lymphocytes % 1.9 % (21.3-54.2); Mean Corpuscular HGB Conc 31.1 GM/DL (32-36); Mean Corpuscular Volume 94.1 FL (87-102); Mean Platelet Volume 12.8 FL (9.6-12.0); Monocytes % 2.7 % (1.7-12.7); NRBC # 0.03 10*3/uL; Neutrophils % 91.4 % (38.7-73.9); Platelet Count 152 T/CUMM (130-400); Red Blood Count 3.38 MC/CUMM (3.8-5.5); Red Cell Distribution Width 18.6 % (9.3-17.3); White Blood Count 20.3 T/CUMM (4-12)
[2019-01-24 05:10] LABS: Band Neutrophils 7 % (0-10); Burr Cells Slight; Hypochromasia 1+; Lymphocytes 2 % (20-55); Ovalocytes Slight; Platelet Estimate Adequate; Segmented Neutrophils 91 % (50-85); Total Cells Counted 100
[2019-01-24 05:16] LABS: Calcium 9.3 MG/DL (8.5-10.1)
[2019-01-24 05:52] LABS: Prealbumin 12.1 MG/DL (20-40)
[2019-01-24] MEDS: NOREPINEPHRINE 8 MG in SODIUM CHLORIDE 0.9% 242 ML IV PRN (08:26)
[2019-01-24] MEDS: CIPROFLOXACIN INJ 400 MG in PREMIX 1 EACH IV SCH (09:53)
[2019-01-24] MEDS: ASCORBIC ACID 500 MG TABLET PO SCH (09:53)
[2019-01-24] MEDS: ENOXAPARIN 30 MG/0.3 ML SYRINGE SUBCUT SCH (09:53)
[2019-01-24] MEDS: AMIODARONE 200 MG TABLET PO SCH (09:53)
[2019-01-24] MEDS: DEXTROSE 5% NACL 0.45% 1,000 ML IV SCH (13:37)
== END 2019-01-24 16:24 | disposition expired | DRG 871 ==
LOC: EDUNIT# → EDBD → N.ED 05:00 → N.EDINP 07:55 → SUATTDRO 07:55 → N.CC 08:40
PROVIDERS: ADMIT Family Medicine; ATTEND Family Medicine